=== PATIENT | male | born 1955 | race Caucasian/White ===

== ENCOUNTER 2019-05-05 04:50 | Day surgery (SDC) | payer OTHER ==
[~2019-05-05 04:50] MED LIST: ADULT ASPIRIN81 MG PO; COMPLETE OMEGA1 EACH PO; COZAAR25 MG PO; FLONASE16 GM NASAL; GLIPIZIDE ER2.5 MG PO; JANUMET 50-1,01 EACH PO; LIPITOR20 MG PO; MULTIVITAMINS PO; NASAL MIST126 ML; TRULICITY PO; [UNRECOGNIZED DRUG - OTHER] PO
== END 2019-05-05 10:35 | disposition home or self-care (01) ==
LOC: CIR.AMB 04:50 → ADM 12:15
DX: M72.0 Palmar fascial fibromatosis [Dupuytren] (principal)